=== PATIENT | male | born 1960 | race Caucasian/White ===

== ENCOUNTER → 2024-04-24 14:52 | Outpatient (CLI) | payer OTHER, SELFPAY ==
--- NOTE | 2024-04-24 14:56 | DI.ECHO.S_ITS ---
[facility]---------+ [facility] : : [address] : : [place] : : [id number] : : Phone: [phone] Echocardiogram Report + + :Name: MATTHIAS VERA Study Date: 04/24/2024 Height: 71 in : :Hospital ReadingLocation: Weight: 230 lb : : Gender: Male BSA: 2.2 m2 : :: 1960 Age: 63 yrs BP: 160/82 mmHg: :Reason For Study: CHEST PAIN : :Ordering Physician: CARINA, : :SUNG Performed By: Matthew Kearns : :Referring: SUNG LIM : + + Interpretation Summary Left ventricular wall thickness is mildly increased. The ejection fraction is estimated to be 60-65%. Diastolic function could not be accurately assessed due to contradictory data. The right ventricle is normal in size and function. There is moderate aortic valve sclerosis. Pulmonary artery pressures cannot be estimated because of the lack of a measurable TR jet velocity. Procedure: A two-dimensional transthoracic echocardiogram with color flow and Doppler was performed. The study quality was technically good. There is no prior echocardiogram noted for this patient. The patient was in normal sinus rhythm during the exam. Left Ventricle: The left ventricle is normal in size. Left ventricular wall thickness is mildly increased. There is no ventricular septal defect visualized. The ejection fraction is estimated to be 60-65%. There are no focal wall motion abnormalities. Diastolic function could not be accurately assessed due to contradictory data. Right Ventricle: The right ventricle is normal in size and function. Atria: The left atrial size is normal. The right atrium is mild to moderately dilated. There is no Doppler evidence for an interatrial shunt. Mitral Valve: There is mild mitral annular calcification. The mitral valve leaflets are mildly calcified. There is trace mitral regurgitation. Aortic Valve: The aortic valve is trileaflet. There is moderate aortic valve sclerosis. The peak aortic velocity is 2.33 m/sec. The aortic valve mean gradient is 11.2 mmHg. There is no hemodynamically significant valvular aortic stenosis. No aortic regurgitation is present. Tricuspid Valve: The tricuspid valve leaflets are thin and pliable. There is trace tricuspid regurgitation. Pulmonary artery pressures cannot be estimated because of the lack of a measurable TR jet velocity. Pulmonic Valve: The pulmonic valve leaflets are thin and pliable; valve motion is normal. There is no pulmonic valvular regurgitation. Great Vessels: The aortic root is normal size. The dimensions of the ascending aorta are normal. The pulmonary artery is normal size. The inferior vena cava was not visualized. Pericardium/ Pleura There is no pericardial effusion. MMode/2D Measurements & Calculations LVIDd: 5.7 cm LVOT diam: 2.0 cm LVIDs: 4.0 cm Ao root diam: 3.4 cm FS: 29.4 % asc Aorta Diam: 3.4 cm EPSS: 1.4 cm IVSd: 1.2 cm LVPWd: 1.2 cm LV early. diameter/BSA (cm/m^2): 2.5 LV sys. diameter/BSA (cm/m^2): 1.8 LA A2 area: 18.6 cm2 RA long axis: 5.8 cm LA A4 area: 26.0 cm2 RA area: 20.8 cm2 LA length (vol): 6.0 cm RA vol: 63.6 ml LA vol: 68.5 ml RA : 28.4 ml/m2 LA vol index: 30.6 ml/m2 RVD1 (basal): 4.2 cm RVD2 (mid): 3.4 cm TAPSE: 1.9 cm Doppler Measurements & Calculations Ao V2 max: 232.5 cm/sec LVOT Max Papa: 132.2 cm/sec Ao V2 mean: 153.0 cm/sec LV V1 max P.0 mmHg Ao max P.6 mmHg LV V1 VTI: 24.7 cm Ao mean P.2 mmHg MARQUISE(I,D): 1.7 cm2 Ao V2 VTI: 46.0 cm MARQUISE(V,D): 1.8 cm2 sev ratio: 0.54 MARQUISE indexed to BSA (cm^2/m^2): 0.75 MV E max papa: 104.9 cm/sec TR max papa: 284.5 cm/sec MV A max papa: 67.8 cm/sec TR max P.4 mmHg MV E/A: 1.5 PA V2 max: 108.2 cm/sec Med Peak E' Papa: 7.5 cm/sec PA V2 mean: 72.7 cm/sec E/E' med: 14.1 PA mean P.4 mmHg Lat Peak E' Papa: 9.5 cm/sec PA pr(Accel): 39.6 mmHg E/E' lat: 11.1 E/e' average: 12.6 MV dec time: 0.17 sec SV(LVOT): 77.4 ml Reading Physician:05:45 PM
== END ==
PROVIDERS: Referring Provider Chiropractor; Visit Provider Chiropractor
DX: I34.81 Nonrheumatic mitral (valve) annulus calcification (principal); I35.8 Other nonrheumatic aortic valve disorders; R07.9 Chest pain, unspecified
CPT/HCPCS: 93306